=== PATIENT | female | born 1995 | race Two or more races ===

== ENCOUNTER 2022-09-14 17:00 | Observation (INO) | payer OTHER ==
[~2022-09-14] VITALS: Ht 154.9 cm; Wt 54.4 kg
[2022-09-14] MEDS ORDERED: PRETAB PO (17:40)
[2022-09-14] MEDS ORDERED: ROB PO (19:40)
[2022-09-14] MEDS ORDERED: NIRM1TAB5 PO (19:40)
--- NOTE | 2022-09-29 08:13 | NUR ---
SS/CM DC PT DC ON 09/14/22 AT 1755- DC HOME Addendum: 09/29/22 at 0814 by Leonard Ramos SS Amended: Links added.
== END 2022-09-14 17:55 | disposition still patient (30) ==
LOC: MFCC 17:00
PROVIDERS: ADMIT Obstetrics & Gynecology; ATTEND Obstetrics & Gynecology
DX: O26.892 Other specified pregnancy related conditions, second trimester (principal); R10.9 Unspecified abdominal pain; O99.891 Other specified diseases and conditions complicating pregnancy; M54.9 Dorsalgia, unspecified; Z3A.25 25 weeks gestation of pregnancy
CPT/HCPCS: G0378

== ENCOUNTER 2022-09-14 17:53 | Emergency (ER) | payer OTHER ==
[~2022-09-14] VITALS: Ht 154.9 cm; Wt 55.4 kg
[~2022-09-14 17:53] MED LIST: PRETAB PO
[2022-09-14 18:16] VITALS: BP 90/61
--- NOTE | 2022-09-14 18:29 | NUR ---
C/O DIFFICULTY BREATHING, COUGH X 2 DAYS. COVID TESTED POSITIVE X TODAY. 25 WEEKS . O2SAT 98% AT THIS TIME.C/O LOWER ABD PAIN WHILE COUGHING. PT WENT TO L&D BEFORE CAME TO ER. PMH: DENIES
[2022-09-14] MEDS ORDERED: ROB PO (19:40)
[2022-09-14] MEDS ORDERED: NIRM1TAB5 PO (19:40)
[2022-09-14 19:44] VITALS: BP 90/61
--- NOTE | 2022-09-14 19:44 | NUR ---
Patient discharged with v/s stable. Written and verbal after care instructions given and explained. Patient alert, oriented and verbalized understanding of instructions. Ambulatory with steady gait. All questions addressed prior to discharge. ID band removed. Patient advised to follow up with PMD. Rx of PAXLOVOID AND ROBITUSSIN given. Patient educated on indication of medication including possible reaction and side effects. Opportunity to ask questions provided and answered.
== END 2022-09-14 19:44 | disposition home or self-care (01) ==
LOC: MED 17:53
DX: O98.512 Other viral diseases complicating pregnancy, second trimester (principal); U07.1 COVID-19; Z3A.25 25 weeks gestation of pregnancy; Z79.899 Other long term (current) drug therapy
CPT/HCPCS: 99283

== ENCOUNTER 2023-06-10 20:32 | Emergency (ER) | payer OTHER ==
[~2023-06-10] VITALS: Ht 154.9 cm; Wt 52.2 kg
[~2023-06-10 20:32] MED LIST changes: +NIRM1TAB5 PO; +ROB PO
[2023-06-10 21:09] VITALS: BP 89/44; PULSE 86; RESP 24; TEMP 97.4; O2SAT 98
[2023-06-10] MEDS ORDERED: ACETAMINOPHEN EXTRA STRENGTH 500 MG TAB PO ONE (22:15)
[2023-06-10] MEDS ORDERED: BACLOFEN 10 MG TAB PO SCH (22:15)
[2023-06-10 22:30] LABS: BASOPHILS # (AUTO) 0.1 K/uL (0.00-0.22); BASOPHILS % (AUTO) 0.8 % (0.0-2.0); EOSINOPHILS # (AUTO) 0.4 K/uL (0-0.4); EOSINOPHILS % (AUTO) 5.2 % (0.0-4.0); HEMATOCRIT 37.1 % (36-48); HEMOGLOBIN 12.5 g/dL (12.0-16.0); LYMPHOCYTES # (AUTO) 2.7 K/uL (2.5-16.5); LYMPHOCYTES % (AUTO) 37.1 % (20.5-51.1); MEAN CORPUSCULAR HEMOGLOBIN 30 pg (27-31); MEAN CORPUSCULAR HGB CONC 34 g/dL (33-37); MEAN CORPUSCULAR VOLUME 89.6 fL (80-94); MONOCYTES # (AUTO) 0.7 K/uL (0.8-1.0); MONOCYTES % (AUTO) 10.1 % (1.7-9.3); NEUTROPHILS # (AUTO) 3.4 K/uL (1.8-7.7); NEUTROPHILS % (AUTO) 46.8 % (42.2-75.2); PLATELET COUNT (AUTO) 354 K/uL (140-450); RED BLOOD CELL COUNT(AUTO) 4.13 MIL/uL (4.20-5.40); RED CELL DISTRIBUTION WIDTH 14.7 % (11.6-13.7); WHITE BLOOD COUNT (AUTO) 7.3 K/uL (4.8-10.8)
[2023-06-10] MEDS ORDERED: CRUSHER, PILL MC ONE (22:35)
[2023-06-10 22:59] LABS: ALBUMIN 3.6 g/dL (3.4-5.0); CALCIUM 8.7 mg/dL (8.5-10.1); CARBON DIOXIDE 28.2 mmol/L (21-32); CREATININE 0.7 mg/dL (0.6-1.3); POTASSIUM 3.2 mmol/L (3.5-5.1); TOTAL BILIRUBIN 0.2 mg/dL (0.0-1.0); TOTAL PROTEIN, SERUM 7.1 g/dL (6.4-8.2)
[2023-06-10 23:02] LABS: MAGNESIUM 1.9 mg/dL (1.8-2.4)
[2023-06-10 23:03] LABS: AMPHETAMINE, URINE NEGATIVE ng/ml (NEG <=1000); BARBITURATE, URINE NEGATIVE ng/ml (NEG <=200); BENZODIAZEPINE, URINE NEGATIVE ng/mL (NEG <=200); CANNABINOID, URINE NEGATIVE ng/mL (NEG <=50); COCAINE, URINE NEGATIVE ng/mL (NEG <=300); OPIATE, URINE NEGATIVE ng/mL (NEG <=2000); PHENCYCLIDINE SCREEN,URINE NEGATIVE ng/mL (NEG <=25)
[2023-06-10 23:15] LABS: PHOSPHORUS 4.3 mg/dL (2.5-4.9)
[2023-06-11] MEDS ORDERED: POTASSIUM CHLORIDE 10 MEQ TABER PO ONE (00:25)
[2023-06-11] MEDS ORDERED: BACL10TA4 PO (00:33)
[2023-06-11] MEDS ORDERED: NAPR-1704 PO (00:33)
[2023-06-11 01:05] VITALS: BP 114/76; PULSE 63; RESP 18; TEMP 98; O2SAT 98
== END 2023-06-11 01:05 | disposition home or self-care (01) ==
LOC: MED 20:32
DX: M79.602 Pain in left arm (principal); E87.6 Hypokalemia; F41.9 Anxiety disorder, unspecified; Z79.899 Other long term (current) drug therapy
CPT/HCPCS: 36415; 71045; 80053; 80305; 81025; 83735; 83880; 84100; 84484; 85025; 93005; 99285; Q0092